=== PATIENT | female | born 1940 | race Caucasian/White ===

== ENCOUNTER 2022-07-24 06:17 | Day surgery (SDC) | payer MEDICARE, OTHER, SELFPAY ==
[2022-07-23 13:34] VITALS: BMI 27.8
[2022-07-24] VITALS (18 sets, daily range): BP systolic 121–165; BP diastolic 32–73; PULSE 53–72; RESP 12–23; TEMP 35.6–37.2; O2SAT 91–100; BMI 28.7
--- NOTE | 2022-07-24 06:00 | DI.RAD.S_ITS ---
PROCEDURE: XR KNEE RT 1TO2V INDICATIONS: TKA TECHNIQUE: 2 view(s) of the knee acquired. COMPARISON: SNO Outside Film, CR, XR KNEE 4+ VIEWS RIGHT, 05/16/2022, 10:10. FINDINGS: Bones: Patient is status post knee joint arthroplasty. Hardware components are in expected positions. Visualized bony structures are intact. Soft tissues: Overlying postoperative changes are noted. IMPRESSION: Expected postsurgical changes. Dictated by: Mikal Llanos M.D. on 07/24/2022 at 16:34 Approved by: Mikal Llanos M.D. on 07/24/2022 at 16:36
[2022-07-24] MEDS: VANCOMYCIN 1,000 MG/200 ML PIGGYBACK 200 MG IV (07:06)
[2022-07-24] MEDS: ACETAMINOPHEN 325 MG TABLET 975 MG PO (07:06)
[2022-07-24] MEDS: CELECOXIB 200 MG CAPSULE PO (07:15)
[2022-07-24 07:45] LABS: COVID19 -Nasal RAPID Negative (Negative)
[2022-07-24] MEDS: LACTATED RINGERS 1,000 ML 42 ML IV (07:46)
--- NOTE | 2022-07-24 08:01 | PM.PREOP ---
Pre-operative Note COVID-19 COVID-19 status: Negative Interval Note History & Physical reviewed/Exam performed by Physician: Yes Changes to H&P: No
--- NOTE | 2022-07-24 08:02 | PM.OP.1 ---
Operative Date/Time/Diagnoses Date of procedure: 07/24/22 Time of procedure: 08:00 Pre-op diagnosis: right knee oa Post-op diagnosis: same Procedure & Clinicians Procedure: right total knee arthroplasty Same procedure as scheduled: Yes Indications: The patient has had progressively worsening right knee pain with radiographic changes consistent with arthritis. Non-operative management has failed and the patient has requested total knee replacement. The risks, benefits and alternatives to surgery were discussed with the patient prior to proceeding. Risks discussed included, but were not limited to, failure to relieve pain, stiffness, infection, nerve damage, deep venous thrombosis, pulmonary embolism, stroke, coma, heart attack, permanent paralysis and , as well as the potential need for eventual revision of the prosthetic. Surgeon: Elaina Williamson Structural Steel Trades Worker: Imelda Pelaez Anesthesia Type: Spinal and Sedation Operative Notes Findings: Severe right knee OA, acceptable stability Closure Type: primary Specimen(s): none sent Prosthetic devices, grafts, tissues, transplants, or devices: Williamson [employer]hew Crystal BCS 2 size 5 femur, size 3 tibia, +10 poly, 32 mm patella Estimated Blood Loss (mL): 250 Blood products transfused: none Tourniquet time (min): 71 Procedure in detail: The patient was seen in the pre-operative area, where the patient identified the right knee as the operative site and this was marked with my initials. The patient received pre-operative antibiotics, and was taken to the operating room and placed on the operative table in the supine position. After satisfactory anesthesia, a time study engineer out was performed. The right leg was encircled with a tourniquet about the proximal thigh, and the leg was prepared from the toes to the tourniquet with ChloroPrep in the usual fashion and draped through sterile drapes. The leg was elevated and exsanguinated with Eschmark bandage and the tourniquet inflated to [250] mmHg pressure. The knee was approached through an approximately 18 cm incision centered over the patella and carried into the knee through a medial parapatellar arthrotomy. A portion of the medial and lateral meniscus was resected. Soft tissue was carefully mobilized around the patella the patella was measured with a caliper. Bone was resected from the patella and the patellar height was reconstituted with up an appropriate sized patellar component. A cover was then placed on the patella. A small amount of additional medial and lateral meniscus was resected. The distal femur was cut at 5?. A [+2] cut was used. It looked like an appropriate distal femoral cut and the cut was made without difficulty. An extramedullary guide was used for the tibial cut. 10 mm was resected off the least affected side. The patient was placed in extension residual medial and lateral meniscus as well as any residual bone was carefully resected. [No] additional tibia was resected. Hemostasis was achieved especially posteriorly. Additional local was injected into the posterior capsule. The extension gap was assessed and additional releases for gap balancing were performed as necessary. It was checked with the gap regional safety manager. The femoral gap was assessed and femoral sizing and rotation was done. The femoral component was trial was placed and the notch was finished. The rotation was assessed and the appropriate size femoral guide was placed on the distal femur and finishing cuts were made. There was no evidence of notching. The anterior, posterior and chamfer cuts were then made. The posterior osteophytes and soft tissues were then removed. The posterior capsule was injected with part of a mixture of 60 ml 0.25% Marcaine mixed with 20 ml Exparel for post operative pain control. The remainder of this mixture was injected into the capsule and subcutaneous tissues during cement curing. The tibial and femoral components were then placed and the knee placed through a range of motion. Range of motion was [0-130], with good stability throughout the range. The trials were then removed, and the tibia was finished. The bone was prepared with pulsatile lavage, and dried with a sponge. Cement was applied and the final prosthetics placed. Excess cement was removed during and after cement curing. A brief Betadine soak was performed. After confirming there was no extruded cement posteriorly, the final tibial insert was placed. The knee was copiously irrigated and the tourniquet deflated. Hemostasis was obtained with the bovie cautery. The capsule was closed with interrupted nonabsorbable suture. The subcutaneous layer was closed with barbed sutures, and the skin with a running 3-0 V-Lock suture and Surgical glue. An Aquacel Ag dressing was applied and the patient was taken to recovery having tolerated the procedure well. Complications: none Post-operative Condition: stable Disposition: Acute Care Plan for aftercare: The patient will be maintained on a standard total knee replacement protocol with weight bearing as tolerated. The patient will receive aspirin and sequential compression devices for DVT prophylaxis. The patient will be discharged home when safe for the home environment.
[2022-07-24] MEDS: CEFAZOLIN 2 GM/100 ML PREMIX 100 ML IV ×2 (08:05→15:27)
[2022-07-24] MEDS: TRANEXAMIC ACID 1,000 MG VIAL 2000 MG INJ ×2 (08:30→09:45)
[2022-07-24] MEDS: BUPIVACAINE LIPOSOME 266 MG/20 ML VIAL INJ (08:35)
--- NOTE | 2022-07-24 08:38 | SUR.OPER ---
Supine on padded OR bed. Pillow under head, arms secured on padded armboards <90 degree abduction. Safety belt across torso. Non-operative leg secured with tape over blanket over lower leg. Operative leg secured in DeMayo positioner. Foam padded brace at thigh of operative leg.
[2022-07-24] MEDS: BUPIVACAINE 0.5% W/ EPI (PF) 30 ML VIAL INJ (08:44)
[2022-07-24] MEDS: LACTATED RINGERS 1,000 ML 120 ML IV (09:24)
[2022-07-24] MEDS: LACTATED RINGERS 1,000 ML 100 ML IV (12:47)
[2022-07-24] MEDS: PHENYTOIN ER 100 MG CAPSULE 300 MG PO (12:51)
[2022-07-24] MEDS: HYDRALAZINE 25 MG TABLET PO ×2 (14:25→20:53)
[2022-07-24] MEDS: IBUPROFEN 400 MG TABLET PO ×3 (14:25→20:56)
--- NOTE | 2022-07-24 14:40 | PT.IIE ---
Current Diagnoses Unilateral primary osteoarthritis, right knee (07/24/22) Surgery Performed Operation Date: 07/24/22 07:45 Actual Procedures p Total Knee Arthroplasty(Right) - Elaina Williamson MD Surgical History (Last Updated 07/23/22 @ 14:31 by Edith Edwards RN) History of partial hysterectomy Hx of appendectomy Hx of bilateral cataract extraction Hx of tonsillectomy Medical History (Last Updated 07/23/22 @ 14:31 by Edith Edwards RN) Accidental phenytoin poisoning Anxiety Ataxia Bronchiectasis Cancer of right breast Cognitive deficit S/P CVA (cerebrovascular accident) Complex partial seizure disorder COPD (chronic obstructive pulmonary disease) Crohn's disease Depression Dyslipidemia Gait disturbance, post-stroke GERD (gastroesophageal reflux disease) Hemiparesis of left nondominant 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 HTN (hypertension) Hyperglycemia Hypothyroidism Left foot drop Loss of smell Mild intermittent asthma without complication Mixed stress and urge incontinence JUSTICE (obstructive sleep apnea) Recurrent falls Rhinitis Skin cancer Toxic encephalopathy Physical Therapy Inpatient Evaluation/Re-Eval M1 PT/OT-IP Prior Functional Status Start: 07/24/22 15:35 Freq: NEEDED Status: Active Protocol: Document 07/24/22 14:40 AB (Rec: 07/24/22 15:52 AB [email or web address]) Medical Review Prior Functional Status Medical History Reviewed Yes Communication able to make needs known Mobility and Gait pt staetd that she is independent with all mobilities and ambulation without AD Social History Household Members none Living Arrangements House Number of Floors (Floors) One Floor Number of Stairs To Enter/Railing? 1 step to enter Home Environment High Toilet,Walk in Shower Home Equipment Front Wheel Walker,Straight Cane,Bedside Commode,Shower Seat with Backrest,Hand Held Shower,Grab Bars Near Toilet Additional Social History Comment pt stated that her friend will stay with her for ~ 2-3 days to assist her M2 PT-IP Current Condition Start: 07/24/22 15:35 Freq: NEEDED Status: Active Protocol: Document 07/24/22 14:40 AB (Rec: 07/24/22 15:52 AB [id number]) Physical Therapy Current Condition Current Condition Evaluation Date 07/24/22 Treatment Diagnosis s/p R TKA; difficulty in walking Onset Date 07/24/22 M3 PT-IP Subjective Start: 07/24/22 15:35 Freq: NEEDED Status: Active Protocol: Document 07/24/22 14:40 AB (Rec: 07/24/22 15:52 AB [email or web address]) Subjective Physical Therapy Visit Type Type Initial Evaluation Visit Start Time 14:40 Visit Stop Time 15:31 Total Visit Minutes 51 Number of DIRECTOR OF SOFTWARE ENGINEERING Visits 0 Physical Therapy Visit Comments Patient Comments requesting to use the toilet Therapy Pain Assessment Pain When Pain Assessed At Rest Pain Present Pain Present Pain Reported Location Right Knee Intensity 2 Scale Used increases with mobility Pain Management Techniques Apply Cold,Modification of Treatment,Re-positioning, Timing of Activity with Medications M4 PT-IP Mobility and Gait Start: 07/24/22 15:35 Freq: NEEDED Status: Active Protocol: Document 07/24/22 14:40 AB (Rec: 07/24/22 15:52 AB [id number]) PT-Bed Mobility Assessment Supine to Sit Supine to Sit Standby Assistance PT-Transfer Assessment Sit to and From Stand Sit to and from Stand Minimal Assistance,Moderate Assistance,1 Person Assistance ,Use of Upper Extremities Equipment Transfer Assistive Device Gait Belt,Front Wheeled Walker Orthotic/Prosthetic Devices or Brace: No Transfers Transfer Destination Toilet Transfer Technique ambulated Transfer Ability Level of Assist Minimal Assistance,Moderate Assistance,1 Person Assistance ,Use of Upper Extremities Comments Mobility Comments completed supine to sit SBA. able to sit on EOB SBA. pt requesting to use the toilet. completed sit to stand mod A and cues. c/o increase R knee pain and initially not able to put weight on. educated pt on weight bearing and quads activation. pt ambulated to the toilet using FWW mod A and cues. presents with unsteady slow paced gait. completed sit to stand from the toilet using grab bar min to mod A for standing balance and assist needed for brief management. pt ambulated towards the chair using FWW min A and cues. pt rested and agreed to ambulate again. completed sit to stand min A from the chair and ambulated in room using fWW ~ 35 ft min A and cues. pt agreed to sit up on chair. positioned on the chair. call light and table placed within reach. ice pack provided. informed nurse regarding pt's mobility Gait Assessment Gait Gait Assistance Required: Minimum Assistance,Moderate Assistance Distance (Feet) 35 Able to Maintain Weight Bearing Status Yes During Gait Assistive Devices Assistive Device Gait Belt,Front Wheeled Walker Orthotic/Prosthetic Devices or Brace: No Gait Deviations General Gait Pattern Antalgic,Decreased Stride Length,Decreased Feet Clearance,Step-to Gait Factors Limiting Gait Function Factors Limiting Gait Function Decreased Activity Tolerance, Decreased Strength,Difficulty Following Directions,Limited Range of Motion,Pain,Poor Balance,Poor Safety Awareness PT-Balance Assessment Sitting Balance and Reactions Static Sitting Balance Ability Normal Dynamic Sitting Balance Ability Good Standing Balance and Reactions Static Standing Balance Ability Fair Dynamic Standing Balance Ability Fair Device Used FWW M5 PT-IP Objective Assessments Start: 07/24/22 15:35 Freq: NEEDED Status: Active Protocol: Document 07/24/22 14:40 AB (Rec: 07/24/22 15:52 AB [email or web address]) Orientation Orientation/Cognition Level of Alertness Alert Orientation Name,Day of Week,Situation Language Function Ability No Deficits Noted Safety Awareness Decreased Safety Awareness Memory Description No Deficits Noted Gross Range of Motion Lower Extremity ROM Impairments R knee flexion: ~ 70 deg Strength Lower Extremity Strength Assessment Right Impaired Hip 4-/5 Knee 3+/5 Sensation Assessment Sensation Gross Sensation WNL Muscle Tone Muscle Tone WNL Yes M6 PT-IP Treatment Start: 07/24/22 15:35 Freq: NEEDED Status: Active Protocol: Document 07/24/22 14:40 AB (Rec: 07/24/22 15:52 AB [email or web address]) Physical Therapy Treatment Exercises Exercises Heel Slides Education Education Provided Precautions,Weight Bearing Status,Post-Op Packet,Safety M7 PT-IP Assessment and Plan Start: 07/24/22 15:35 Freq: NEEDED Status: Active Protocol: Document 07/24/22 14:40 AB (Rec: 07/24/22 15:52 AB [email or web address]) PT Summary Assessment and Plan Potential Rehabilitation Potential Good Status of Condition at Evaluation Evolving Summary Impairments Pain,ROM,Strength,Balance, Coordination,Sensation,Tone, Cognition,Bed Mobility, Transfers,Gait,Activity Tolerance Assessment Summary pt s/p R TKA and just had surgery this morning. pt initially requiring mod A with mobility with c/o increase pain but afterwards able to ambulate with just min A using FWW. pt will likely progress during hospital stay. pt plans to go home and she has a friend that will stay with her for the first few days to assist her. will conduct caregiver training when appropriate. Goals Bed Mobility Goal Independent Transfer Goal Independent,Front Wheeled Walker Gait Goal Independent,Front Wheel Walker Gait Distance 150 Other Goals up/down 1 step using FWW SBA Days to Meet Goals 5 Frequency of Treatment Frequency Of Treatment Twice a Day Treatment Plan Physical Therapy Treatment Plan Bed Mobility Training,Transfer Training,Gait Training, Therapeutic Exercise,Balance Retraining,Post Op Education, Discharge Planning,Hot or Cold Pack,Neuromuscular Re-ed, Coordination Retraining,Manual Therapy Weight Bearing Status Weight Bearing Status Weight Bear as Tolerated Allowed Weight Bearing Amount (enter % RLE WBAT or #) (%) Recommendations To Nursing Amount of Assist Needed 1 Person Assist Discharge Recommendations PT Discharge Recommendations Home with Assistance, Outpatient PT Transportation Needs at Discharge Private Vehicle
[2022-07-24] MEDS: ACETAMINOPHEN 325 MG TABLET 650 MG PO (17:35)
[2022-07-24] MEDS: ATORVASTATIN 20 MG TABLET 40 MG PO (20:54)
[2022-07-24] MEDS: METOPROLOL IR 25 MG TABLET 50 MG PO (20:55)
[2022-07-24] MEDS: DOCUSATE 100 MG CAPSULE PO (20:56)
[2022-07-24] MEDS: ASPIRIN EC 81 MG TABLET PO (20:57)
[2022-07-24] MEDS: MONTELUKAST 10 MG TABLET PO (20:57)
[2022-07-24] MEDS: BUSPIRONE 5 MG TABLET 15 MG PO (20:59)
[2022-07-25] MEDS: IBUPROFEN 400 MG TABLET PO (00:34)
[2022-07-25] MEDS: CEFAZOLIN 2 GM/100 ML PREMIX 100 ML IV (00:34)
[2022-07-25] MEDS: ACETAMINOPHEN 325 MG TABLET 650 MG PO ×2 (00:35→05:39)
[2022-07-25 06:09] LABS: Hematocrit 31.6 % (36-46); Hemoglobin 10.7 g/dL (12.0-16.0)
--- NOTE | 2022-07-25 06:09 | PC.NURSE ---
Pt states at 0530 that she isn't 'allowed to take ibuprofen' as she used to take it very frequently and developed 'stomach issues'. Pt states she forgot until now, held 0500 ibuprofen dose. Will pass along to day shift.
[2022-07-25 06:21] VITALS: BP 126/61; PULSE 70; RESP 18; TEMP 37.1; O2SAT 93
--- NOTE | 2022-07-25 07:41 | P.DS_ITS ---
History of Present Illness History of Present Illness Date Patient Seen: 07/25/22 Time Patient Seen: 07:41 Chief complaint: Right TKA *OPB* Narrative: Operative Date/Time/Diagnoses Date of procedure: 07/24/22 Time of procedure: 08:00 Pre-op diagnosis: right knee oa Post-op diagnosis: same Procedure & Clinicians Procedure: right total knee arthroplasty Same procedure as scheduled: Yes Indications: The patient has had progressively worsening right knee pain with radiographic changes consistent with arthritis. Non-operative management has failed and the patient has requested total knee replacement. The risks, benefits and alternatives to surgery were discussed with the patient prior to proceeding. Risks discussed included, but were not limited to, failure to relieve pain, stiffness, infection, nerve damage, deep venous thrombosis, pulmonary embolism, stroke, coma, heart attack, permanent paralysis and , as well as the potential need for eventual revision of the prosthetic. Surgeon: Elaina Williamson Application Services Manager: Imelda Pelaez Anesthesia Type: Spinal and Sedation Operative Notes Findings: Severe right knee OA, acceptable stability Closure Type: primary Specimen(s): none sent Prosthetic devices, grafts, tissues, transplants, or devices: [employer]hew Dimitriney BCS 2 size 5 femur, size 3 tibia, +10 poly, 32 mm patella Estimated Blood Loss (mL): 250 Blood products transfused: none Tourniquet time (min): 71 Discharge Providers Provider Discharge Date: 07/25/22 Primary care physician: Reza Mclean MD Consults: 07/24/22 06:00 Consult to Anesthesiology Routine Comment: Consulting Provider: Anesthesiologist Reason for consultation: Regional block for post operative pain control 07/24/22 11:20 Consult to Discharge Planning Routine Comment: Consult to Physical Therapy Evaluate & Treat Comment: Physician Instructions: postop TKA protocol Discharge provider: Imelda Pelaez PA-C Summary Hospital Course Discharge Diagnosis: Right knee osteoarthritis, s/p right total knee arthroplasty Hospital Course: Ms Chu's hospital course was unremarkable. On POD# 1, she was feeling well and wanted to go home. She was evaluated by PT and felt to be safe for discharge. She was eating and voiding without difficulty. 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 I suggested trying celecoxib in addition to APAP for pain control. Her only barrier to homegoing was transportation; her friend lives in [place], and she was unsure whether she would be able to drive due to ice and snow on the roads. Exam Vital Signs (past 8 hours): - 07/25/22 06:21 Temperature 98.8 F Pulse Rate 70 Respiratory Rate 18 Blood Pressure 126/61 Pulse Oximetry 93 Oxygen Flow Rate 0 Oxygen Delivery Method Room Air Oxygen Flow Rate 0 Narrative Exam Narrative: 5/5 strength in hip flexors, quadriceps, hamstrings, DF, PF, EHL on right. Sensation to light touch intact in RLE. Calves soft, compressible, nontender a nd without palpable cords or masses. Aquacel dressing CDI. 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 HTN (hypertension) Hyperglycemia Hypothyroidism Left foot drop Loss of smell Mild intermittent asthma without complication Mixed stress and urge incontinence JUSTICE (obstructive sleep apnea) Recurrent falls Rhinitis Skin cancer Toxic encephalopathy Surgical History (Updated 07/23/22 @ 14:31 by Edith Edwards RN) History of partial hysterectomy Hx of appendectomy Hx of bilateral cataract extraction Hx of tonsillectomy Social History household members: none Smoking Status: Former smoker alcohol intake: former Discharge Assessment & Plan Assessment and Plan Assessment: Right knee osteoarthritis, s/p right total knee arthroplasty Acute nemia d/t expected post-surgical blood loss Plan of Treatment: Discharge home pending transportation. Multimodal pain control; pt has all rxs at home except for celebrex, which will be sent in today. ASA 81 mg BID for VTE prophylaxis. Outpt PT. F/u in office in 2 weeks. Discharge Plan Discharge Plan Patient Disposition: Home Discharge orders & Medications Discharge Orders: Discharge (Order); Ordered 07/25/22 Ordered By: Imelda Pelaez Prescriptions: New aspirin 81 mg Tablet,Delayed Release (Dr/Ec) 81 mg PO BID Qty: 1 0RF Rx Instructions: Take for 6 weeks to prevent blood clots celecoxib [Celebrex] 100 mg Capsule 100 mg PO BID Qty: 60 1RF Continued atorvastatin 40 mg Tablet 40 mg PO BEDTIME cetirizine [Zyrtec] 10 mg Tablet 5 mg PO DAILY hydralazine 25 mg Tablet 25 mg PO TID phenytoin sodium extended [Dilantin Extended] 100 mg Capsule 300 mg PO QAM acetaminophen 500 mg Tablet 1,000 mg PO Q6H PRN (Reason: Headache) amlodipine 10 mg Tablet 10 mg PO DAILY levothyroxine 150 mcg Tablet 150 mcg PO DAILY montelukast 10 mg Tablet 10 mg PO QPM losartan 100 mg Tablet 100 mg PO DAILY buspirone 15 mg Tablet 15 mg PO BID metoprolol tartrate 25 mg Tablet 50 mg PO BID potassium chloride 20 mEq Tablet Extended Release 20 meq PO DAILY sertraline 100 mg Tablet 200 mg PO DAILY Follow up/Referrals: Reza Mclean MD [Primary Care Provider] - Elaina Williamson MD [Physician] - As previously scheduled (Follow up w/ Angie Dubon PA-C, on 08/07/2022 @ 3:00 pm at [facility] in [place].) Diet/Activity/Treatments Diet: Diet as Tolerated Activity: Walk frequently! Cold/Heat Therapy: Ice to knee as needed for pain. Skin/Wound/Dressing Care Report to your healthcare provider any signs of infection, such as:: chills, fever, night sweats, unusual drainage and unusual redness Dressing: May remove YOBANI wrap and shower on , 07/26/2022. Leave Aquacel dressing in place until follow up appointment. No bathing or otherwise soaking incision. Call the office if the Aquacel dressing becomes saturated inside. Visit Report/Discharge Packet Instructions: DI for Knee Replacement Stand Alone Forms: Surgery Discharge Discharge Data Primary Care Provider: Reza Mclean Attending Provider: Elaina Williamson Quality VTE Deep Vein Thrombosis/Pulmonary Embolism Present on Admission: No
[2022-07-25 08:41] VITALS: BP 137/71; PULSE 71; RESP 16; TEMP 36.8; O2SAT 96
[2022-07-25] MEDS: ASPIRIN EC 81 MG TABLET PO (09:45)
[2022-07-25] MEDS: SERTRALINE 50 MG TABLET 200 MG PO (09:45)
--- NOTE | 2022-07-25 09:45 | PT.IPTN ---
Current Diagnoses Unilateral primary osteoarthritis, right knee (07/24/22) Surgery Performed Operation Date: 07/24/22 07:45 Actual Procedures p Total Knee Arthroplasty(Right) - Elaina Williamson MD Physical Therapy Treatment Note M2 PT-IP Current Condition Start: 07/24/22 15:35 Freq: NEEDED Status: Discharge Protocol: Document 07/24/22 14:40 AB (Rec: 07/24/22 15:52 AB [id number]) Physical Therapy Current Condition Current Condition Evaluation Date 07/24/22 Treatment Diagnosis s/p R TKA; difficulty in walking Onset Date 07/24/22 M3 PT-IP Subjective Start: 07/24/22 15:35 Freq: NEEDED Status: Discharge Protocol: Document 07/25/22 09:45 AB (Rec: 07/25/22 14:11 AB [email or web address]) Subjective Physical Therapy Visit Type Type Treatment Note Visit Start Time 09:45 Visit Stop Time 10:20 Total Visit Minutes 35 Number of SEQUINS SPOOLER Visits 0 Physical Therapy Visit Comments Patient Comments agreeable to do PT Therapy Pain Assessment Pain When Pain Assessed At Rest Pain Present Pain Present Pain Reported Location Right Knee Intensity 5 Scale Used Numeric (0 - 10) Pain Management Techniques Apply Cold,Distraction, Elevation,Modification of Treatment,Re-positioning, Timing of Activity with Medications M4 PT-IP Mobility and Gait Start: 07/24/22 15:35 Freq: NEEDED Status: Discharge Protocol: Document 07/25/22 09:45 AB (Rec: 07/25/22 14:11 AB [email or web address]) PT-Bed Mobility Assessment Supine to Sit Supine to Sit Standby Assistance PT-Transfer Assessment Sit to and From Stand Sit to and from Stand Standby Assistance,1 Person Assistance,Use of Upper Extremities Equipment Transfer Assistive Device Gait Belt,Front Wheeled Walker Orthotic/Prosthetic Devices or Brace: No Transfers Transfer Destination Chair Transfer Technique Stand Step Pivot Transfer Ability Level of Assist Standby Assistance Comments Mobility Comments completed supine to sit SBA. completed sit to stand sBA and ambulated ~ 20 ft. completed up/down platform step using FWW CGA. repeated x 2. c/o increase knee pain but refuse to take oxy per nurse and just had celebrex. pt ambulated back to her room and agreed to sit up on the chair. positioned on the chair. call light and table placed within reach. educated pt on pain control and effects on mobility. pt understood but continues to refuse pain med. pt also declined caregiver training. Gait Assessment Gait Gait Assistance Required: Standby Assistance Distance (Feet) 20 Able to Maintain Weight Bearing Status Yes During Gait Assistive Devices Assistive Device Gait Belt,Front Wheeled Walker Orthotic/Prosthetic Devices or Brace: No Gait Deviations General Gait Pattern Antalgic,Decreased Stride Length,Decreased Feet Clearance Factors Limiting Gait Function Factors Limiting Gait Function Decreased Activity Tolerance, Limited Range of Motion,Pain, Poor Balance,Poor Safety Awareness Stair Climbing Assessment Evaluation Level of Assist On Stairs Contact Guard Assistance,1 Person Assistance Devices Stair Climbing Assistive Devices Front Wheel Walker Technique/Endurance Stair Climbing Direction Ascend and Descend Stair Climbing Technique Step to Step Number of Steps Climbed 1 Stair Climbing Set # Repetitions (reps) 2 M5 PT-IP Objective Assessments Start: 07/24/22 15:35 Freq: NEEDED Status: Discharge Protocol: Document 07/24/22 14:40 AB (Rec: 07/24/22 15:52 AB [email or web address]) Orientation Orientation/Cognition Level of Alertness Alert Orientation Name,Day of Week,Situation Language Function Ability No Deficits Noted Safety Awareness Decreased Safety Awareness Memory Description No Deficits Noted Gross Range of Motion Lower Extremity ROM Impairments R knee flexion: ~ 70 deg Strength Lower Extremity Strength Assessment Right Impaired Hip 4-/5 Knee 3+/5 Sensation Assessment Sensation Gross Sensation WNL Muscle Tone Muscle Tone WNL Yes M6 PT-IP Treatment Start: 07/24/22 15:35 Freq: NEEDED Status: Discharge Protocol: Document 07/25/22 09:45 AB (Rec: 07/25/22 14:11 AB [facility]) Physical Therapy Treatment Education Education Provided Safety M7 PT-IP Assessment and Plan Start: 07/24/22 15:35 Freq: NEEDED Status: Discharge Protocol: Document 07/25/22 09:45 AB (Rec: 07/25/22 14:11 AB [id number]) PT Summary Assessment and Plan Potential Rehabilitation Potential Good Summary Impairments Pain,ROM,Strength,Balance, Coordination,Sensation,Tone, Cognition,Bed Mobility, Transfers,Gait,Activity Tolerance Progress Towards Goals Slow Progress due to Pain Assessment Summary pt progressing slowly but c/o increase pain but refuses pain meds. pt plans to go to her partner's house and partner will be able to assist her. pt also stated that she has outpt PT set up. Goals Bed Mobility Goal Independent Transfer Goal Independent,Front Wheeled Walker Gait Goal Independent,Front Wheel Walker Gait Distance 150 Other Goals up/down 1 step using FWW SBA Days to Meet Goals 5 Frequency of Treatment Frequency Of Treatment Twice a Day Treatment Plan Physical Therapy Treatment Plan Bed Mobility Training,Transfer Training,Gait Training, Therapeutic Exercise,Balance Retraining,Post Op Education, Discharge Planning,Hot or Cold Pack,Neuromuscular Re-ed, Coordination Retraining,Manual Therapy Weight Bearing Status Weight Bearing Status Weight Bear as Tolerated Allowed Weight Bearing Amount (enter % RLE WBAT or #) (%) Recommendations To Nursing Amount of Assist Needed 1 Person Assist Discharge Recommendations PT Discharge Recommendations Home with Assistance, Outpatient PT Transportation Needs at Discharge Private Vehicle
[2022-07-25 09:46] VITALS: BP 137/71
[2022-07-25] MEDS: HYDRALAZINE 25 MG TABLET PO (09:46)
[2022-07-25] MEDS: LOSARTAN 50 MG TABLET 100 MG PO (09:46)
[2022-07-25] MEDS: LEVOTHYROXINE 150 MCG TABLET PO (09:46)
[2022-07-25] MEDS: DOCUSATE 100 MG CAPSULE PO (09:46)
[2022-07-25] MEDS: BUSPIRONE 5 MG TABLET 15 MG PO (09:46)
[2022-07-25] MEDS: POTASSIUM CHLORIDE 20 MEQ TAB PO (09:46)
[2022-07-25] MEDS: METOPROLOL IR 25 MG TABLET 50 MG PO (09:46)
[2022-07-25] MEDS: PHENYTOIN ER 100 MG CAPSULE 300 MG PO (09:47)
[2022-07-25] MEDS: AMLODIPINE 5 MG TABLET 10 MG PO (09:47)
[2022-07-25] MEDS: CELECOXIB 100 MG CAPSULE PO (09:48)
[2022-07-25] MEDS: LORATADINE 10 MG TABLET 5 MG PO (10:12)
--- NOTE | 2022-07-25 11:32 | PC.NURSE ---
Pt is dressed and packed up ready to go home with friend Flora. IV has been removed. She has been cleared by PT. Went over d/c instructions with Pt-discussed d/c meds, time of last dose, reviewed stroke education, s/s of infection, no driving while on narcotics, drink plenty of fluids to prevent constipation or dehydration, showering and follow up appointment. Pt denies further questions and is ready to be taken out when friend arrives to drive her.
--- NOTE | 2022-07-25 11:54 | PC.NURSE ---
Pt out via w/c by WE[employer] SPA MANAGER to POV with friend and all belongings.
--- NOTE | 2022-07-25 13:46 | CM.DANOTE ---
Patient is an 82 yo female who was admitted on 07/24/22 for RTKA. Pt has [place] and [place] for [place] and her PCP is Reza Mclean. EMR was reviewed. Per Ortho PA, pt tolerated surgery well and stable for d/c home today and no barriers to discharge. Per PT, recommending safe d/c home with assist and outpt PT. SW met bedside with pt and explained role and she confirms that she lives at home in [place] alone but has very good local friend and supportive neighbors. Pt quite active and independent at baseline and does not use DME for ambulation at baseline. Pt drives. Pt confirms that her pain is managed well and her best friend Flora plans to stay with pt a few days for assist and as long as needed. Pt does not feel she has any needs for d/c today and is already established with outpt PT and has her next apt scheduled. Friend plans to be bedside by lunch time. Plan: Patient to d/c home today via friend POV and outpt PT already set up and scheduled. No further SW needs at this time. MANDA Whaley Discharge Planning/Care Management Advanced directive, confirm from FAMILY Start: 07/24/22 11:31 Freq: Q24H Status: Discharge Protocol: Document 07/25/22 11:31 CM (Rec: 07/25/22 11:33 CM [id number]) Advance Directive, confirm on record Time 11:33 Person contacted Pt Copy received No CM Discharge Assessment Start: 07/25/22 13:45 Freq: Status: Active Protocol: Document 07/25/22 13:45 BF (Rec: 07/25/22 13:46 BF [id number]) Discharge Planning Assessment Assigned Blood Bank Technician MANDA Francis DPOA/Assigned Designee Name claudine Hines Advance Directives? Yes Advance Directives on File No History Provided By Patient,Medical Record Has Patient been admitted in last 30 No days? Prior Living Arrangements House Household Members none Type of transporation used prior to Drives own vehicle admit Independent with ADL's Yes Is patient alert and oriented? Yes Caregiver for Another No Community Services used prior to Physical Therapy admission: DME Already Rented / Owned FWW / Walker Patient/Family Preference OP PT Therapy Barriers to Discharge No Discharge Plan Home Community Services Physical Therapy Transportation Arrangement friend Flora to provide transport home today Referrals Initiated None needed Whiteboard Updated in Patient Room with Yes name and ext. # of Blood Bank Technician Review Status In Process Please Provide Date Initial DC 07/25/22 Assessment Was Performed Next Review Type Continued Stay Review Pre-Anesthesia Assessment Start: 07/23/22 13:34 Freq: Status: Discharge Protocol: Document 07/23/22 13:34 CAB (Rec: 07/23/22 15:15 CAB [id number]) Pre-Anesthesia Assessment PAC Comment Pt denies any memory issues, but required repeated instructions with medications, uses a mediset for pills and was unsure which meds were which. I called her pharmacy and was able to instruct the patient which pills were her metoprolol and amlodipine to take dos based on color and stamped identification. She will also take her Dilantin dos as well. Patient Information Reviewed Via Phone Assessment Assessment Completed With Patient Comment Outside labs/ECG done, not here, COVID-RAPID on admit Primary Care Provider Reza Mclean Seen Specialist in Last 12 Months Yes Specialist Seen Personal Attendant,Orthopedist Primary Language [place] Landing Gear Mechanic Required No Height 160.02 cm Weight 71.214 kg Body Mass Index (BMI) 27.8 Hearing Ability Normal Visual Assist Glasses Dentition Type Full- Upper & Lower Barriers to Learning Memory Hx Anesthesia Reactions No: JUSTICE-No CPAP Hx Family Anesthesia Reaction No Hx Malignant Hyperthermia No Hx Blood Transfusions No: Amish, no blood products Anesthesia Review Requested No alcohol intake former Smoking Status Former smoker how long ago did patient quit smoking Quit 1979 Substance Use Type does not use Pain Present Pain Reported Musculoskeletal Symptoms Abnormal Gait,Back Pain, Difficulty Walking,Joint Pain, Neck Pain History of Falling (Recent or History of Yes ) Patient is completely paralyzed or No completely immobile Mental Status Oriented to own ability Is patient on oxygen? No Does patient have VELA/SOB No Hx Sleep Apnea Yes CPAP/BIPAP use prescribed not used Currently Taking a Beta Ricarda Yes: Metoprolol Hx Chest Pain No Hx SOB No Hx Syncope or Dizziness No Anti-Coagulant Therapy No Has a Photograph Developer No Cardiac Testing No Hx Pacemaker/ICD No Pacemaker Rep Required? No Diet Type At Home Regular Dysphagia No Gastrointestinal Symptoms Diarrhea,Reflux Bladder Pattern Incontinent Urinary Catheter Present No Hx Urinary Self Catheterization No Diabetes No Patient No Lactating No Presence of External or Internal Medical Yes: Bilateral eye IOLs Devices Have you had any close contact with No someone diagnosed with COVID-19? Received a COVID vaccine? Yes Received all doses? Yes Marital Status Lives With none Current Living Arrangements House Comment has dementia, lives in a facility Number of Floors (Floors) One Floor Support System Friend(s) Does the Patient Have Assistance After Yes: Friend will stay at pt's Surgery house to assist with care at DC Patient Discharge Plan Description Return Home Comment Pt advised same day surgery per surgeon Feels Safe in Current Environment Yes Been Physically Hurt or Threatened By a No Person in Current Environment Do you have thoughts of harming yourself None or others? Are you currently considering suicide? No Do you have a plan to hurt yourself or No Plan others? Do You Have Any Spiritual Beliefs That Yes: Amish, no May Affect Your HC Choices? blood products Do You Have Any Cultural Practices That No May Affect Your HC Choices? Comment Amish Who Can We Speak to About Patient's Care Family, friends Identifying Code for Release of Patient Declines to issue Information Health Care Proxy/Next of Kin Vicki Lamb (daughter) Health Care Proxy Emergency Contact Name Flora Reid (Good friend) Emergency Contact Power of Collection Systems Foreman Yes Power of Collection Systems Foreman Name Vicki Lamb (daughter) Power of Collection Systems Foreman PAC Instructions Do not shave/clip surgical site,Durable medical equipment ,Medications to take/avoid, Nasal antibiotic,No ETOH/ petroleum product on skin DOS, NPO,Pre-surgical wash,Sensory aids,Sturdy shoes/comfortable clothes,Do not bring valuables and remove jewelry
== END 2022-07-25 11:54 | disposition home or self-care (01) ==
LOC: OR 06:20 → AC 06:21
PROVIDERS: PCP Specialist; Referring Provider Orthopaedic Surgery; Visit Provider Orthopaedic Surgery
PROC: 0SRC0JZ Replacement of Right Knee Joint with Synthetic Substitute, Open Approach (ICD-10-PCS; CPT 27447; principal; 2022-07-24 07:45)
DX: M17.11 Unilateral primary osteoarthritis, right knee (principal); Z20.822 Contact with and (suspected) exposure to COVID-19
CPT/HCPCS: 27447; 36415; 73560; 85014; 85018; 87635; 97116; 97162; 97530; C1776; C9803; C1713; C9290; J0690; J2250; J3010